=== PATIENT | female | born 1975 | race Caucasian/White ===

== ENCOUNTER 2022-01-10 17:35 | Emergency (ER) | payer OTHER, SELFPAY ==
[2022-01-10 17:42] VITALS: BP 180/97; PULSE 82; RESP 15; TEMP 36.7; O2SAT 98; BMI 40.3
[2022-01-10 18:31] LABS: Influenza A - CEPHEID Flu A POSITIVE (NEGATIVE); Influenza B - CEPHEID Flu B NEGATIVE (NEGATIVE); Respiratory Syncytial Virus Negative (Negative)
[2022-01-10 18:37] LABS: COVID-19 CEPHEID 4-PLEX PCR Negative (Negative)
[2022-01-10 19:10] VITALS: PULSE 84; O2SAT 96
--- NOTE | 2022-01-10 19:23 | ED.URI ---
HPI - URI/Sore Throat General Chief Complaint: Upper Respiratory Symptoms Stated Complaint: Fever, cough, chest pain X 3 days Time Seen by Provider: 01/10/22 19:06 Source: patient Mode of arrival: Ambulatory History of Present Illness HPI Narrative: Patient is a 47-year-old female history of hypertension presenting today with body aches and chest pain. She says been ongoing for last 2 days. She has been taking Tylenol ibuprofen keeping her fever down. That she feels like heaviness and squeezing in her chest. Sometimes she feels like she can not take a deep breath. She has a dry nonproductive cough she is short of breath with exertion. No significant lower extremity edema. She has no abdominal pain nausea or vomiting. She is trying to stay hydrated. However was concerned with breathing. Related Data Allergies Allergy/AdvReac Type Severity Reaction Status Date / Time amoxicillin Allergy Verified 01/10/22 17:42 venlafaxine [From Effexor] Allergy Verified 01/10/22 17:42 Review of Systems Review of Systems Narrative: GENERAL: See HPI HEENT: Denies sinus pain, ear pain, sore throat, difficulty swallowing, neck pain RESPIRATORY: See HPI CARDIOVASCULAR: Denies chest pain, palpitations, orthopnea, edema GASTROINTESTINAL: Denies nausea, vomiting, abdominal pain, diarrhea, constipation, melena. : Denies dysuria, frequency, incontinence, hematuria, urinary retention, flank pain. MUSCULOSKELETAL: Denies weakness, joint pain, or bony pain SKIN: No rash, no erythema, no pruritus NEUROLOGIC: Denies weakness, dizziness, headache, numbness, change in speech, confusion PSYCHIATRIC: No concerning psychosocial issues. 12 point review of systems is negative except for those stated above and HPI Patient History Social History Smoking Status: Unknown if ever smoked Smoking Status: Unknown if ever smoked alcohol intake frequency: holidays/special occasions only Substance Use Type: does not use Exam Initial Vital Signs Initial Vital Signs: Vital Signs Temperature 98.1 F 01/10/22 17:42 Pulse Rate 82 01/10/22 17:42 Respiratory Rate 15 01/10/22 17:42 Blood Pressure 180/97 H 01/10/22 17:42 Pulse Oximetry 98 01/10/22 17:42 Oxygen Delivery Method 01/10/22 17:42 GENERAL: Alert 27-year-old female appears in no acute distress and in no acute distress. HEENT: Head atraumatic,EOMI, pupils reactive, face symmetric, moist mucous membranes CARDIOVASCULAR: Regular rate and rhythm without murmurs, rubs or gallops. RESPIRATORY: Breath sounds equal bilaterally, no wheezes rales or rhonchi. Mild decreased breath sounds bilaterally no conversational dyspnea ABDOMEN: Soft, nontender. Normoactive bowel sounds all 4 quadrants. No guarding or rebound. EXTREMITIES: Normal range of motion, no clubbing or edema. Neurovascularly intact NEUROLOGICAL: Alert and oriented x4.Normal gait and speech. SKIN: Warm, dry, no laceration, no petechiae, no rashes or lesions. Scores HEART Score Heart Score history: Slightly Suspicious Heart Score EKG: Normal Heart Score Age: 45-64 years old Heart Score risk factors: No known risk factors Heart Score troponin: < or = to normal limit Heart Score Total: 1 Course Orders Ordered: Discontinued Medications Albuterol (Albuterol Hfa Prepack) 1 box MISC SEEINSTR ONE Stop: 01/10/22 20:21 Last Admin: 01/10/22 20:43 Dose: 1 box Documented By: [email or web address] Sodium Chloride (Normal Saline 0.9%) 1,000 mls @ 1,000 mls/hr IV CONT LILO Last Infusion: 01/10/22 20:43 Dose: 0 mls/hr Documented By: Admin: 01/10/22 19:40 Dose: 1,000 mls/hr Documented By: SB Vital Signs Vital signs: Vital Signs - 8 hr 01/10/22 17:42 01/10/22 19:10 01/10/22 19:30 Temperature 98.1 F Pulse Rate 82 84 75 Respiratory Rate 15 Blood Pressure 180/97 H Pulse Oximetry 98 96 96 Oxygen Delivery Method Room Air 01/10/22 19:31 01/10/22 19:31 01/10/22 19:33 Temperature Pulse Rate 80 75 Respiratory Rate 20 Blood Pressure 158/105 H Pulse Oximetry 97 98 Oxygen Delivery Method 01/10/22 19:33 Temperature Pulse Rate Respiratory Rate Blood Pressure 149/86 H Pulse Oximetry Oxygen Delivery Method MDM - URI/Sore Throat Lab Data Result diagrams: 01/10/22 19:28 01/10/22 19:28 Labs: Lab Results 1101/10/22 01/10/22 Range/Units 17:45 19:28 19:28 WBC 5.7 (4.5-11.0) X10^3/uL RBC 5.09 (4.0-5.2) X10^6/uL Hgb 14.0 (12.0-16.0) g/dL Hct 41.0 (36-46) % MCV 80.5 (80-100) fL MCH 27.5 (26-34) PG MCHC 34.1 (30-36) % RDW 14.1 (11.6-14.8) % Plt Count 296 (150-400) X10^3/uL Neut % (Auto) 51.8 (50-75) % Lymph % (Auto) 30.4 (25-40) % Bledsoe % (Auto) 13.2 (3-14) % Eos % (Auto) 3.7 (2-4) % Baso % (Auto) 0.9 (0-2) % Neut # (Auto) 3000 (5010-5817) /uL Lymph # (Auto) 1700 (9001-9497) /uL Bledsoe # (Auto) 800 (0-900) /uL Eos # (Auto) 200 (0-450) /uL Baso # (Auto) 100 (0-100) /uL Sodium 138 (137-145) mmol/L Potassium 3.4 (3.4-5.1) mmol/L Chloride 98 (98-107) mmol/L Carbon Dioxide 29 (22-32) mmol/L BUN 11 (7-17) mg/dL Creatinine 0.76 (0.52-1.04) mg/dL Estimated GFR > 60 (>60) mL/min BUN/Creatinine Ratio 14.5 (6-22) Glucose 104 H (70-100) mg/dL Lactate (0.7-2.1) mmol/L Calcium 8.8 (8.4-10.2) mg/dL Total Bilirubin 0.4 (0.2-1.3) mg/dL AST 25 (14-36) IU/L ALT 29 (<35) IU/L Alkaline Phosphatase 88 (38-126) U/L Total Creatine Kinase 71 (30-135) U/L CK-MB (CK-2) TNP CK-MB (CK-2) Rel Index TNP Troponin I < 0.012 (0.01-0.034) ng/mL Total Protein 7.9 (6.3-8.2) g/dL Albumin 4.2 (3.5-5.0) g/dL Globulin 3.7 (1.7-4.1) g/dL Albumin/Globulin Ratio 1.1 (1.0-2.8) Lipase 76 (23-300) U/L Procalcitonin 0.05 (<0.5) ng/mL SARS-CoV-2 (PCR) Negative (Negative) Influenza A (RT-PCR) Flu a positive H (NEGATIVE) Influenza B (RT-PCR) Flu b negative (NEGATIVE) RSV (PCR) Negative (Negative) 01/10/22 Range/Units 19:28 WBC (4.5-11.0) X10^3/uL RBC (4.0-5.2) X10^6/uL Hgb (12.0-16.0) g/dL Hct (36-46) % MCV (80-100) fL MCH (26-34) PG MCHC (30-36) % RDW (11.6-14.8) % Plt Count (150-400) X10^3/uL Neut % (Auto) (50-75) % Lymph % (Auto) (25-40) % Bledsoe % (Auto) (3-14) % Eos % (Auto) (2-4) % Baso % (Auto) (0-2) % Neut # (Auto) (2645-7362) /uL Lymph # (Auto) (5689-6524) /uL Bledsoe # (Auto) (0-900) /uL Eos # (Auto) (0-450) /uL Baso # (Auto) (0-100) /uL Sodium (137-145) mmol/L Potassium (3.4-5.1) mmol/L Chloride (98-107) mmol/L Carbon Dioxide (22-32) mmol/L BUN (7-17) mg/dL Creatinine (0.52-1.04) mg/dL Estimated GFR (>60) mL/min BUN/Creatinine Ratio (6-22) Glucose (70-100) mg/dL Lactate 1.1 (0.7-2.1) mmol/L Calcium (8.4-10.2) mg/dL Total Bilirubin (0.2-1.3) mg/dL AST (14-36) IU/L ALT (<35) IU/L Alkaline Phosphatase (38-126) U/L Total Creatine Kinase (30-135) U/L CK-MB (CK-2) CK-MB (CK-2) Rel Index Troponin I (0.01-0.034) ng/mL Total Protein (6.3-8.2) g/dL Albumin (3.5-5.0) g/dL Globulin (1.7-4.1) g/dL Albumin/Globulin Ratio (1.0-2.8) Lipase (23-300) U/L Procalcitonin (<0.5) ng/mL SARS-CoV-2 (PCR) (Negative) Influenza A (RT-PCR) (NEGATIVE) Influenza B (RT-PCR) (NEGATIVE) RSV (PCR) (Negative) Imaging Data Chest x-ray: My Impression: No acute cardiopulmonary process ECG Data Interpretation: Normal sinus rhythm rate 78 HI interval 176 QRS [address] changes artifact noted respiratory variant no ischemia MDM Narrative Medical decision making narrative: Patient is found to be positive for influenza A. Blood work is overall reassuring. Low heart score. Symptoms are likely related to infection. At this time no need for any further workup. Other considerations include pulmonary embolism, pneumonia sepsis Discharge Plan Departure Patient Disposition: Home Clinical Impression: Influenza Instructions: DI for Influenza -- Adult Activity Restrictions/Additional Instructions: *You have been diagnosed with influenza a *What to do: At this time supportive care only. No antibiotics. Fluids and fever control as needed. Rest. *Continue to take medications as directed Albuterol inhaler 1-2 puffs with spacer if needed for coughing spells or chest discomfort Motrin 600 mg every 6 hours if needed for mild to moderate pain/fever Tylenol 1000 mg every 6 hours if needed for [id number] pain or fever *Follow up with your primary care provider in 2-3 days or call [phone] *Return to ER if you should have increasing shortness of breath not tolerating fluids, fever not controlled worsening chest pain or any new, worsening or concerning symptoms Visit Report Forms: Patient Portal/API
--- NOTE | 2022-01-10 19:29 | DI.RAD.S_ITS ---
PROCEDURE: XR CHEST 1V INDICATIONS: chest pain TECHNIQUE: One view of the chest was acquired. COMPARISON: None. FINDINGS: Surgical changes and devices: None. Lungs and pleura: Mild opacity at the right lung base. No pleural effusions. Mediastinum: Mediastinal contours appear normal. Heart size is normal. Bones and chest wall: No suspicious bony lesions. Overlying soft tissues appear unremarkable. IMPRESSION: Mild right lung base opacity could represent atelectasis or early airspace disease. Consider future imaging surveillance to assess for resolution. Dictated by: Ramakrishna Krishnamurthy M.D. on 01/10/2022 at 20:17 Approved by: Ramakrishna Krishnamurthy M.D. on 01/10/2022 at 20:17
[2022-01-10 19:30] VITALS: PULSE 75; O2SAT 96
[2022-01-10 19:31] VITALS: BP 158/105; PULSE 80; O2SAT 97
[2022-01-10 19:33] VITALS: BP 149/86; PULSE 75; RESP 20; O2SAT 98
[2022-01-10] MEDS: SODIUM CHLORIDE 0.9% 1,000 ML 1000 ML IV (19:40)
[2022-01-10 19:48] LABS: Add Manual Diff / Slide Review NO; Basophils Absolute Auto 100 /uL (0-100); Basophils Percent Auto 0.9 % (0-2); Eosinophils Absolute Auto 200 /uL (0-450); Eosinophils Percent Auto 3.7 % (2-4); Lymphocytes Absolute Auto 1700 /uL (1100-4500); Lymphocytes Percent Auto 30.4 % (25-40); Mean Corpuscular HGB Conc 34.1 % (30-36); Mean Corpuscular Hemoglobin 27.5 PG (26-34); Mean Corpuscular Volume 80.5 fL (80-100); Monocytes Absolute Auto 800 /uL (0-900); Monocytes Percent Auto 13.2 % (3-14); Neutrophils Absolute Auto 3000 /uL (1500-7000); Neutrophils Percent Auto 51.8 % (50-75); Platelet Count 296 X10^3/uL (150-400); Red Blood Cell Count 5.09 X10^6/uL (4.0-5.2); Red Cell Distribution Width 14.1 % (11.6-14.8); White Blood Cell Count 5.7 X10^3/uL (4.5-11.0)
[2022-01-10 19:54] LABS: Lactate (Lactic Acid) 1.1 mmol/L (0.7-2.1)
[2022-01-10 19:55] LABS: Alanine Aminotransferase 29 IU/L (<35); Albumin 4.2 g/dL (3.5-5.0); Albumin Globulin Ratio 1.1 (1.0-2.8); Alkaline Phosphatase 88 U/L (38-126); Aspartate Aminotransferase 25 IU/L (14-36); BUN Creatinine Ratio 14.5 (6-22); Bilirubin Total 0.4 mg/dL (0.2-1.3); Blood Urea Nitrogen 11 mg/dL (7-17); Calcium 8.8 mg/dL (8.4-10.2); Carbon Dioxide 29 mmol/L (22-32); Chloride 98 mmol/L (98-107); Creatine Kinase 71 U/L (30-135); Estimated Glomerular Filt Rate > 60 mL/min (>60); Globulin 3.7 g/dL (1.7-4.1); Glucose 104 mg/dL (70-100); HEMOLYSIS < 15 (0-50); Lipase 76 U/L (23-300); Potassium 3.4 mmol/L (3.4-5.1); Sodium 138 mmol/L (137-145); Total Protein 7.9 g/dL (6.3-8.2)
[2022-01-10 20:06] LABS: Troponin I < 0.012 ng/mL (0.01-0.034)
[2022-01-10 20:11] LABS: Procalcitonin 0.05 ng/mL (<0.5)
--- NOTE | 2022-01-10 20:40 | PC.NURSE ---
inhaler with spacer given with teaching and pt verbalized understanding of instructions
[2022-01-10] MEDS: ALBUTEROL HFA PREPACK 1 BOX MISC (20:43)
== END 2022-01-10 20:43 | disposition home or self-care (01) ==
PROVIDERS: Emergency Medicine; Emergency Provider Emergency Medicine
DX: J10.1 Influenza due to other identified influenza virus with other respiratory manifestations (principal); R07.9 Chest pain, unspecified; Z20.822 Contact with and (suspected) exposure to COVID-19
CPT/HCPCS: 0241U; 36415; 71045; 80053; 82550; 83605; 83690; 84145; 84484; 85025; 93005; 99284

== ENCOUNTER 2022-07-18 07:29 | Emergency (ER) | payer OTHER, SELFPAY ==
[2022-07-18 07:43] VITALS: BP 200/107; PULSE 78; RESP 24; TEMP 37; O2SAT 99; BMI 40.3
[2022-07-18 08:34] LABS: Amorphous Sediment Urine 1+; Bacteria Urine Moderate (10-30); Culture Indicated Urine Specimen Cultured; RBC Urine 1-5/HPF (0-5/HPF); Squamous Epithelial Cell Urine 1-5 /HPF (0-5/HPF); WBC Urine 1-5/HPF (0-5/HPF)
--- NOTE | 2022-07-18 08:50 | ED_ITS ---
HPI - Neck Pain/Injury General Chief Complaint: Neck Pain/Injury Stated Complaint: per pt posssible pinched nerve on neck Time Seen by Provider: 07/18/22 08:50 Mode of arrival: Ambulatory History of Present Illness HPI Narrative: Patient is a 47-year-old female history of hypertension, chronic ongoing back pain. Currently in physical therapy. She recently started some stretches had increasing pain since she started the new stretches. She occasionally gets some sharp shooting pains down her left arm stemming from her neck. There are certain positions that make it worse. She is been taking a leave without significant relief. She also has tizanidine as a muscle relaxer which she says usually helps but has not been helping this time. She denies any weakness or fever. Last night she was unable to get any sleep secondary to pain. Related Data Previous Rx's Medication Instructions Recorded tramadol 50 mg tablet 50 mg PO Q6H PRN pain #14 tabs 07/18/22 Allergies Allergy/AdvReac Type Severity Reaction Status Date / Time amoxicillin Allergy Verified 07/18/22 07:43 venlafaxine [From Effexor] Allergy Verified 07/18/22 07:43 Review of Systems Review of Systems ROS Unobtainable: All systems reviewed & are unremarkable except as noted in HPI and below Patient History Social History Smoking Status: Never smoker Smoking Status: Never smoker alcohol intake frequency: holidays/special occasions only Substance Use Type: does not use Exam Initial Vital Signs Initial Vital Signs: Vital Signs Temperature 98.6 F 07/18/22 07:43 Pulse Rate 78 07/18/22 07:43 Respiratory Rate 24 07/18/22 07:43 Blood Pressure 200/107 H 07/18/22 07:43 Pulse Oximetry 99 07/18/22 07:43 Oxygen Delivery Method Room Air 07/18/22 07:43 GENERAL: Well-appearing, well-nourished and in no acute distress. NECK: Paraspinal muscle tenderness no vertebral tenderness pain reproducible CARDIOVASCULAR: peripheral pulses in tact, cap refill <2 sec RESPIRATORY: No respiratory distress, speaks in full sentences without difficulty EXTREMITIES: Normal range of motion, no clubbing or edema. Neurovascularly intact NEUROLOGICAL: Cranial nerves II through XII grossly intact. Normal gait and speech. SKIN: Warm, dry, no petechiae, no rashes or lesions. Course Orders Ordered: Discontinued Medications Ketorolac Tromethamine (Ketorolac 30 Mg/Ml Vial) 30 mg IM NOW ONE Stop: 07/18/22 09:00 Last Admin: 07/18/22 09:17 Dose: 30 mg Documented By: AT Vital Signs Vital signs: Vital Signs - 8 hr 07/18/22 07:43 Temperature 98.6 F Pulse Rate 78 Respiratory Rate 24 Blood Pressure 200/107 H Pulse Oximetry 99 Oxygen Delivery Method Room Air MDM - Neck Pain/Injury Lab Data Labs: Lab Results 07/18/22 Range/Units 07:59 Urine RBC 1-5/hpf (0-5/HPF) Urine WBC 1-5/hpf (0-5/HPF) Ur Squamous Epith Cells 1-5 /hpf (0-5/HPF) Amorphous Sediment 1+ Urine Bacteria Moderate (10-30) H (None) Ur Culture Indicated? Specimen cultured Urine Dip Bedside Urine Glucose Negative Bedside Urine Bilirubin - Negative Bedside Urine Ketone - Negative Urine Specific [place] 1.010 Bedside Urine Occult Blood ++ Bedside Urine pH 7.0 Bedside Urine Protein - Negative Bedside Urine Urobilinogen - Negative Bedside Urine Nitrite - Negative Bedside Urine Leukocytes - Negative Esterase MDM Narrative Medical decision making narrative: Patient 47-year-old female history of chronic ongoing neck pain from previous injury presents today with worsening muscle spasm and neuropathic like pain. No fever or meningeal signs. Seems musculoskeletal. No concern for dissection this time she has pretty good range of motion. She is noted to have some hematuria but no flank pain or painful frequent urination. She has significant itching with [place] and Percocet she is not tried tramadol. She is not taken Aleve since yesterday. Discharge Plan Departure Patient Disposition: Home Clinical Impression: Strain of neck muscle Instructions: Peripheral Neuropathy, DI for Neck Pain Activity Restrictions/Additional Instructions: *You have been diagnosed with acute on chronic neck pain, neuropathy *What to do: At this time continue ice or heat whichever makes it feel better. You may try some arnica cream as well. *Continue to take medications as directed Tramadol 50-100 mg every 6 hours needed for moderate to severe pain Tylenol 1000 mg every 6 hours if needed for [id number] pain *Follow up with your primary care provider in 2-3 days or call [phone] *Return to ER if you should have increasing pain weakness or any new, worsening or concerning symptom CONTROLLED SUBSTANCE DISCHARGE (Narcotoic/benzodiazepine/Flexeril/Phenergan) 1. You have been prescribed narcotic medications, it does have acetaminophen /Tylenol/paracetamol in it, DO NOT TAKE MORE THAN 4,00mg in 24 hours of Tylenol. TRAMADOL DOES NOT CONTAIN TYLENOL 2. Please understand that we cannot provide further refills of narcotics, benzodiazepines or controlled substances through the ED and her pain management will need to be through your provider. 3. While on these medications you cannot drive or operate heavy machinery. 4. You cannot sign legal documents or perform any duties such as this. 5. As long as you're taking opiate pain medications he should also be taking a stool softener such as Colace, Dulcolax, MiraLAX or prune juice, to help avoid constipation. Prescriptions: New tramadol 50 mg tablet 50 mg PO Q6H PRN (Reason: pain) Qty: 14 0RF Stand Alone Forms: Patient Portal/API
[2022-07-18] MEDS: KETOROLAC 30 MG/ML VIAL IM (09:17)
[2022-07-18 09:20] VITALS: BP 197/103; PULSE 66; RESP 16; O2SAT 98
== END 2022-07-18 09:28 | disposition home or self-care (01) ==
PROVIDERS: Emergency Provider Emergency Medicine
DX: S16.1XXA Strain of muscle, fascia and tendon at neck level, initial encounter (principal); X58.XXXA Exposure to other specified factors, initial encounter
CPT/HCPCS: 81003; 81015; 87086; 96372; 99283; J1885